=== PATIENT | female | born 1980 | race Caucasian/White ===

== ENCOUNTER 2022-04-05 11:17 | Emergency (ER) | payer MEDICAID ==
[~2022-04-05] VITALS: Ht 165.1 cm; Wt 59.0 kg
[2022-04-05 11:46] VITALS: BP_SYST 125
[2022-04-05] MEDS ORDERED: HYDROcodone/ACETAMIN 10-325 MG TAB PO ONE (13:15)
[2022-04-05] MEDS ORDERED: IBUPROFEN 800 MG TABLET PO ONE (13:15)
[2022-04-05] MEDS ORDERED: BACITRACIN 1 GM OINT TP ONE (14:00)
[2022-04-05] MEDS ORDERED: IBUP-1969 PO (15:46)
[2022-04-05] MEDS ORDERED: NEOM28.37 TP (15:46)
[2022-04-05] MEDS ORDERED: HYDR-3917 PO (15:46)
[2022-04-05 16:20] VITALS: BP_SYST 124
== END 2022-04-05 16:20 | disposition home or self-care (01) ==
LOC: SED 11:17
DX: S10.81XA Abrasion of other specified part of neck, initial encounter (principal); T20.07XA Burn of unspecified degree of neck, initial encounter; R07.9 Chest pain, unspecified; Z79.899 Other long term (current) drug therapy; W22.10XA Striking against or struck by unspecified automobile airbag, initial encounter; Y93.89 Activity, other specified; Y92.89 Other specified places as the place of occurrence of the external cause; Y99.8 Other external cause status
CPT/HCPCS: 71045; 72040-TC; 99284

== ENCOUNTER → 2023-08-01 | Emergency (ER) | payer MEDICAID ==
[~2023-08-01] MED LIST: HYDR-3917 PO; IBUP-1969 PO; NEOM28.37 TP
== END | disposition home or self-care (01) ==
LOC: SED 05:23
DX: J06.9 Acute upper respiratory infection, unspecified (principal)
CPT/HCPCS: 99281

== ENCOUNTER 2024-01-05 08:35 | Emergency (ER) | payer MEDICAID ==
[~2024-01-05] VITALS: Ht 165.1 cm; Wt 54.9 kg
[2024-01-05 08:38] VITALS: BP_SYST 111; PULSE 87; RESP 16; TEMP 97.8; O2SAT 100
[2024-01-05 08:45] VITALS: BP_SYST 111; PULSE 87; RESP 16; TEMP 97.8; O2SAT 100
== END 2024-01-05 08:47 | disposition home or self-care (01) ==
LOC: SED 08:35
DX: Z02.89 Encounter for other administrative examinations (principal); Z79.899 Other long term (current) drug therapy
CPT/HCPCS: 99283